=== PATIENT | male | born 1975 | race Hispanic/Latino ===

== ENCOUNTER 2021-04-12 08:53 | Emergency (ER) | payer OTHER, SELFPAY ==
--- NOTE | 2021-04-12 09:03 | DI.RAD.S_ITS ---
PROCEDURE: XR TIBIA FIBULA LT 2V INDICATIONS: injury/pain and swelling TECHNIQUE: 2 views of the tibia and fibula were acquired. COMPARISON: None. FINDINGS: Bones: Orthopedic screws noted in the distal tibia compatible with prior ORIF of medial malleolus fracture. No acute fractures or dislocations. No suspicious bony lesions. Soft tissues: No suspicious soft tissue calcifications or masses. IMPRESSION: No acute fracture. No osseous lesion. If symptoms and/or clinical suspicion for pathology persists, further assessment with repeat radiographs (7-10 days) or advanced imaging (e.g. CT, MRI or bone scan) should be considered. Dictated by: Shell Moran MD, PhD on 04/12/2021 at 8:22 Approved by: Shell Moran MD, PhD on 04/12/2021 at 8:23
[2021-04-12 09:04] VITALS: BP 142/83; PULSE 71; RESP 16; TEMP 36.3; O2SAT 97; O2SAT 98; BMI 31.7
--- NOTE | 2021-04-12 09:09 | ED_ITS ---
HPI - Extremity Injury (Lower) General Chief Complaint: Extremity Injury, Lower Stated Complaint: Pain in left calf, can't put weight on it Time Seen by Provider: 04/12/21 09:09 History of Present Illness HPI Narrative: 45-year-old male nonsmoker with noncontributory medical history presents with a chief complaint of left calf pain after injury this morning. He was attempting to pull start a lawnmower and lost his balance and stepped back with his left leg, in doing so he felt a pop and pain in his calf. He has increasing pain when pushing off with his left foot. He denies any other injury. He has no numbness, tingling or weakness. Review of Systems Review of Systems Narrative: GENERAL: Denies chills, fatigue, malaise, fever, sweats. HEENT: Denies sinus pain, ear pain, sore throat, difficulty swallowing, dizziness. RESPIRATORY: Denies dyspnea, cough, wheezing, hemoptysis, sputum. CARDIOVASCULAR: Denies chest pain, palpitations, orthopnea, edema, GASTROINTESTINAL: Denies nausea, vomiting, abdominal pain, diarrhea, constipation, melena. : Denies dysuria, frequency, incontinence, hematuria, urinary retention. MUSCULOSKELETAL: See HPI SKIN: Denies rash, skin lesions, or other NEUROLOGIC: Denies weakness, headache, numbness, change in speech, confusion, seizures, incoordination. PSYCHIATRIC: No concerning psychosocial issues. 12 point review of systems is negative except for those stated above Exam Narrative Exam Narrative: GEN: AOx3 and in mild distress EYES: Pupils are equal, round, and reactive to light and accommodation. Extraoccular muscles are intact bilaterally. There is no subconjunctival hemorrhage or exudate. CHEST: Lungs are clear to auscultation bilaterally and free of wheezes, rales, or rhonchi. Heart rate is regular rhythm, there are no murmurs, clicks, rubs, or gallops. There is no chest wall tenderness. ABD: Abdomen is soft and nontender. There is no guarding or rebound. Bowel sounds are normal in all 4 quadrants. There is no mass or organomegaly. EXT: Decreased plantar flexion at the left ankle secondary to pain in the calf. There is no step-off at the Achilles and there is plantar flexion noted with calf squeeze suggesting an intact Achilles. Patient is tender in the medial belly of the gastrocnemius. This is closed, isolated and neurovascularly intact. SKIN: Warm, pink, and dry. No erythema or rash Initial Vital Signs Initial Vital Signs: Vital Signs Temperature 97.3 F L 04/12/21 09:04 Pulse Rate 71 04/12/21 09:04 Respiratory Rate 16 04/12/21 09:04 Blood Pressure 142/83 H 04/12/21 09:04 Pulse Oximetry 97 04/12/21 09:04 Procedures Orthopedic Splinting/Casting Injury #1: Other Orthopedic Equipment: crutches Course Orders Ordered: ED Orders 04/12/21 09:03 XR tibia fibula LT 2V Stat Vital Signs Vital signs: Vital Signs - 8 hr 04/12/21 09:04 Temperature 97.3 F L Pulse Rate 71 Respiratory Rate 16 Blood Pressure 142/83 H Pulse Oximetry 98 MDM - Extremity Injury (Lower) Imaging Data Extremity x-ray #1: Radiologist's Impression: Launch?[address] [address] XRay Report Signed Patient: Kirt Cao MR#: [id number] : 1975 Acct:[id number] Age/Sex: 45 / M Date of Service: 04/12/21 Loc: ED Accession Number: [id number] ?? Procedure: XR tibia fibula LT 2V Ordering Provider: Dawit Fox D.O. PROCEDURE:? XR TIBIA FIBULA LT 2V ? INDICATIONS:? injury/pain and swelling ? TECHNIQUE:? 2 views of the tibia and fibula were acquired.? ? COMPARISON:? None. ? FINDINGS:? ? Bones:? Orthopedic screws noted in the distal tibia compatible with prior ORIF of medial malleolus fracture.? No acute fractures or dislocations.? No suspicious bony lesions.? ? Soft tissues:? No suspicious soft tissue calcifications or masses.? ? ? IMPRESSION:? No acute fracture. No osseous lesion. If symptoms and/or clinical suspicion for pathology persists, further assessment with repeat radiographs (7-10 days) or advanced imaging (e.g. CT, MRI or bone scan) should be considered. ? ? ? Dictated by: Shell Moran MD, PhD on 04/12/2021 at 8:22 ? ? Approved by: Shell Moran MD, PhD on 04/12/2021 at 8:23 ? Discharge Plan Departure Patient Disposition: Home Clinical Impression: Calf pain Qualifiers: Laterality: left Qualified Code(s): M79.662 - Pain in left lower leg Instructions: Calf Muscle Strain Activity Restrictions/Additional Instructions: *You have been diagnosed with [left calf pain, most likely a strain or partial tear. Your Achilles tendon appears intact. *What to do: *Please continue to take your regular medications as directed. [ ] New medication prescriptions sent to your pharmacy: [ ] [ ] New medication written as a paper prescription [ x] No new medications given *Please follow up with your primary care provider or Orthopedics in 2-3 days, call for an appointment. Let them know you were seen in the Emergency Department and that we ask that you be seen in follow up. We will electronically transmit a record of today's note if your PCP is in our system *If you do not have a primary care provider please contact the [facility] Resource line at [phone]. They will ask some questions about your medical history and help get you set up with a doctor in the community. * as we discussed you have been given crutches and I would encourage weight- bearing limited to minimal toe-touch only until follow-up. I would expect her symptoms to improve over the next 5-7 days but if they persist your primary care provider or Orthopedics will help you decide on the next steps which may include further imaging such as an MRI or physical therapy *Return to Emergency Department if you should have any new, worsening or concerning symptoms Radiographic study has been interpreted by an emergency physician. The official diagnosis by radiology will be performed within the next 24 hours and should there be any change in outcome we will notify you of how to proceed.
== END 2021-04-12 09:40 | disposition home or self-care (01) ==
PROVIDERS: Emergency Provider Emergency Medicine
DX: M79.662 Pain in left lower leg (principal)
CPT/HCPCS: 73590; 99283